=== PATIENT | male | born 1995 | race Caucasian/White ===

== ENCOUNTER 2018-11-28 16:59 | Emergency (ER) | payer BC ==
--- NOTE | 2018-11-28 17:17 | ER Report ---
History and Physical Time Seen By MD: 17:17 HPI/ROS CHIEF COMPLAINT: Laceration HISTORY OF PRESENT ILLNESS: This is a 23-year-old male who presents to emergency department for a laceration. Patient states that about 20-30 minutes prior to arrival, he was using a skill saw with a gloved hand it bounce back and caught the glove and he ended up with a laceration to the palmar side of the left middle finger, between the PIP and DIP, in an "H" pattern. Bleeding is controlled. There is some adipose tissue supposed. CMS intact distal to the injury. Good flexion and extension. REVIEW OF SYSTEMS: Respiratory: No cough, no dyspnea. Cardiovascular: No chest pain, no palpitations. Gastrointestinal: No vomiting, no abdominal pain. Musculoskeletal: As above. Integumentary: As above. 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/28/18 Past Medical/Surgical History The patient has no significant past medical and surgical history Reviewed Nurses Notes: Yes Constitutional Vital Sign - Last 24 Hours 11/28/18 11/28/18 11/28/18 11/28/18 17:17 17:30 17:45 18:00 Temp 98.5 Pulse 88 87 86 100 Resp 16 B/P (MAP) 136/83 119/68 (85) 120/67 (84) Pulse Ox 92 92 95 90 O2 Delivery Room Air 11/28/18 11/28/18 11/28/18 11/28/18 18:15 18:30 18:45 19:00 Pulse 96 110 101 97 B/P (MAP) 132/69 (90) 119/72 (88) Pulse Ox 96 94 96 96 Physical Exam General Appearance: The patient is alert, has no immediate need for airway protection and no current signs of toxicity. Eyes: Pupils equal and round no injection. Respiratory: Chest is non tender, lungs are clear to auscultation. Cardiac: regular rate and rhythm. Gastrointestinal: Abdomen is soft and non tender, no masses, bowel sounds normal. Musculoskeletal: Neck: Neck is supple and non tender. Extremities have full range of motion and are non tender. Skin: 2.5 Laceration/tearing wound with an "H" appearance to the left middle finger, between the DIP and PIP, CMS intact distal to the injury, good flexion and extension of the distal finger. DIFFERENTIAL DIAGNOSIS: After history and physical exam differential diagnosis was considered for laceration. Medical Decision Making EKG/Imaging Imaging Location: [facility] [place] Patient: Billy Escamilla : 1995 Visit/Account:[id number] Date of Sevice: 11/28/2018 HAND COMPLETE LEFT Indication: Middle finger injury. Evaluate for foreign body or fracture. Comparison: None Available. Findings: 3 views of the left hand. No fracture or dislocation. No bony lesions, degenerative changes or periosteal abnormality. Soft tissue swelling seen about the middle finger. No radiopaque foreign body. IMPRESSION: 1.No acute osseous abnormality of the left hand. No radiopaque foreign body. Report Dictated By: Maurisio Siddiqui at 11/28/2018 6:26 PM Report E-Signed By: Maurisio Siddiqui at 11/28/2018 6:28 PM WSN:[id number] ED Course/Re-evaluation ED Course The patient was admitted to room. A history and physical were obtained. Differential diagnoses were considered. An x-ray of the left hand negative for a ny acute bony abnormalities, no foreign bodies identified. The wound was thoroughly cleansed and irrigated and repaired as noted below. The patient's tetanus was up-to-date. The patient was given an a 1 g injection of Rocephin. The patient was also started on Augmentin. The patient had no other questions or concerns at this time and was discharged home. The wound was dressed with b acitracin, tube gauze and a finger splint. He was instructed to monitor closely for signs of infection even know he will be on antibiotics. Procedure: Laceration repair. Verbal consent was obtained from the patient. The 2 cm laceration on the palmar side of the distal middle finger on the left hand, between the DIP and PIP was anesthetized in the usual fashion. The wound was scrubbed, draped and explored to its base with a gloved finger. There were no deep structures involved. No tendon injury was identified. The wound was repaired with 8, 5-0 proline simple interrupted sutures. The wound repair was simple. The procedure was performed by myself. Decision to Disposition Date: Nov 28, 2018 Decision to Disposition Time: 19:01 Depart Departure Latest Vital Signs Vital Signs Date Time Temp Pulse Resp B/P (MAP) Pulse Ox O2 Delivery O2 Flow Rate FiO2 11/28/18 19:00 97 119/72 (88) 96 11/28/18 17:17 98.5 16 Room Air Impression: Primary Impression: Laceration of left middle finger Condition: Improved Disposition: HOME OR SELF-CARE New Scripts Amoxicillin/Pot Clav 875-125 Mg Tab (AUGMENTIN 875-125 TABLET) 1 Each Tablet 1 TAB PO Q12H for 7 Days, #14 TAB 0 Refills Prov: JUDY AGUIAR 11/28/18 Patient Instructions: Acute Wound Care (ED), Finger Laceration (ED) Additional Instructions: Keep wound dry for 48 hours. Follow up with your primary care provider in the next 7 days to have sutures removed. Take the Augmentin as prescribed, starting November 29. Monitor for signs of infection; redness, swelling, heat, discharge, increasing pain or red streaking. Take Tylenol or Ibuprofen as needed for pain. Return to the ER with any concerns. You may change dressing as needed. Problem Qualifiers Primary Impression: Laceration of left middle finger Encounter type: initial encounter Damage to nail status: without damage Foreign body presence: without foreign body Qualified Codes: S61.213A - Laceration without foreign body of left middle finger without damage to nail, initial encounter JUDY AGUIAR Nov 28, 2018 17:17
[2018-11-28] MEDS ORDERED: LIDOCAINE 1% MDV 200 MG/20 ML INJ ONE (18:05)
[2018-11-28] MEDS ORDERED: cefTRIAXone 1 GM VIAL IM ONE (18:05)
--- NOTE | 2018-11-28 18:34 | RADIOLOGY IMAGING REPORT ---
FACILITY: [facility] [place] PATIENT NAME: Billy Escamilla : 1995 MR: [id number] V: [id number] EXAM DATE: ORDERING PHYSICIAN: JUDY AGUIAR TECHNOLOGIST: Location: [facility] Patient: Billy Escamilla : 1995 Visit/Account:[id number] Date of Sevice: 11/28/2018 HAND COMPLETE LEFT Indication: Middle finger injury. Evaluate for foreign body or fracture. Comparison: None Available. Findings: 3 views of the left hand. No fracture or dislocation. No bony lesions, degenerative changes or perios teal abnormality. Soft tissue swelling seen about the middle finger. No radiopaque foreign body. IMPRESSION: 1.No acute osseous abnormality of the left hand. No radiopaque foreign body. Report Dictated By: Maurisio Siddiqui at 11/28/2018 6:26 PM Report E-Signed By: Maurisio Siddiqui at 11/28/2018 6:28 PM WSN:[id number]
[2018-11-28] MEDS ORDERED: AMOX-559 PO (18:36)
[2018-11-28 19:00] VITALS: BP 119/72
== END 2018-11-28 19:23 | disposition home or self-care (01) ==
LOC: ER 17:06
DX: S61.213A Laceration without foreign body of left middle finger without damage to nail, initial encounter (principal); W29.8XXA Contact with other powered hand tools and household machinery, initial encounter
CPT/HCPCS: 12001; 73130; 96372; 99283; J0696